=== PATIENT | female | born 1955 | race Caucasian/White ===

== ENCOUNTER 2017-03-29 13:38 | Day surgery (SDC) | payer OTHER ==
[2017-03-28 15:16] VITALS: BMI 31.9
[2017-03-29] MEDS ORDERED: ceFAZolin SODIUM 1 GM VIAL ONE (14:29)
[2017-03-29] MEDS ORDERED: PROPOFOL 20 ML ONE (14:33)
[2017-03-29] MEDS ORDERED: DEXAMETHASONE SOD PHOSPHATE 4 MG/1 ML VIAL ONE (14:33)
[2017-03-29] MEDS ORDERED: ROCURONIUM BROMIDE 50 MG/5 ML VIAL ONE ×2 (14:33→16:33)
[2017-03-29] MEDS ORDERED: LIDOCAINE HCL 2% 100 MG/5 ML DISP.SYRIN ONE (14:33)
[2017-03-29] MEDS ORDERED: fentaNYL CITRATE 250 MCG/5 ML VIAL ONE (14:33)
[2017-03-29] MEDS ORDERED: MIDAZOLAM HCL 2 MG/2 ML SINGLE DOSE VIAL ONE (14:34)
[2017-03-29] MEDS ORDERED: INDOCYANINE GREEN 25 MG/10 ML VIAL IVPUSH ONE (14:36)
[2017-03-29] MEDS ORDERED: LIDOCAINE 1%/EPI 1:100000 (20 ML MULTI DOSE VIAL) ONE (14:36)
[2017-03-29] MEDS ORDERED: BUPIVACAINE HCL/PF 0.5% (5MG/ML) 10 ML VIAL ONE (14:37)
--- NOTE | 2017-03-29 15:07 | HP ---
History & Physical Update - History History: No Change - Physical Physical: No Change - Assessment Assessment: No Change - Plan Plan: No Change
[2017-03-29] MEDS ORDERED: ceFAZolin SODIUM 1 GM VIAL IVPB ONE (15:35)
[2017-03-29] MEDS ORDERED: BUPIVACAINE HCL/PF 0.5% (5MG/ML) 10 ML VIAL IJ ONE (16:01)
[2017-03-29] MEDS ORDERED: GLYCOPYRROLATE 0.2 MG/1 ML VIAL ONE (17:01)
[2017-03-29] MEDS ORDERED: NEOSTIGMINE METHYLSULFATE 0.5 MG/ML - 10 ML MDV ONE (17:01)
--- NOTE | 2017-03-29 17:29 | OP ---
Operative Note - Note: Operative Date: 03/29/17 Pre-Operative Diagnosis: endometrial cancer Operation: Robotic total hysterectomy, bilateral salpingoophorectomy, bilateral pelvic sentinel lymphadenectomy Findings: cervix no lesions, vagina no lesions. Intrabdominal findings- normal diaphragm and liver edge, 8 week uterus with myomas, bilateral tubes and ovaries normal. No lymphadenopathy or ascites. No intraabdominal e/o disease Post-Operative Diagnosis: Same as Pre-op Surgeon: Marli Eason Bellman Driver: Verenice Mensah Anesthesia: General, Local Specimens Removed: uterus, cervix, bilateral tubes and ovaries, bilateral external iliac sentinel lymph nodes, washings Estimated Blood Loss (mls): 25 Operative Report Dictated: Yes
[2017-03-29] MEDS ORDERED: PROCHLORPERAZINE INJECTION 10 MG/2 ML VIAL IVPB PRN (17:35)
[2017-03-29] MEDS ORDERED: ONDANSETRON 4 MG/2 ML VIAL IVPB PRN (17:35)
[2017-03-29] MEDS ORDERED: diphenhydrAMINE HCL 25 MG CAPSULE (FP) PO PRN (17:35)
[2017-03-29] MEDS ORDERED: METOCLOPRAMIDE HCL INJECTION 10 MG/2 ML VIAL IVPUSH PRN (17:35)
[2017-03-29] MEDS ORDERED: HYDROmorphone HCL CARPU-JECT 4 MG/1 ML DISP.SYRIN IVPUSH PRN (17:35)
[2017-03-29] MEDS ORDERED: oxyCODONE HCL 5 MG TABLET PO PRN (17:39)
[2017-03-29] MEDS ORDERED: LACTATED RINGERS SOLUTION 1,000 ML/1,000 ML INFUS.BAG IV SCH (18:15)
[2017-03-29] MEDS: KETOROLAC TROMETHAMINE 15 MG/ML VIAL IVPUSH SCH (23:15)
[2017-03-29] MEDS: ACETAMINOPHEN 325 MG TABLET (FP) PO SCH ×2 (23:16→23:37)
[2017-03-29] MEDS ORDERED: HYDROmorphone HCL CARPU-JECT 2 MG/1 ML DISP.SYRIN IVPUSH PRN (23:27)
[2017-03-30] MEDS: KETOROLAC TROMETHAMINE 15 MG/ML VIAL IVPUSH SCH ×2 (03:30→09:17)
[2017-03-30] MEDS: ACETAMINOPHEN 325 MG TABLET (FP) PO SCH ×2 (05:56→11:57)
--- NOTE | 2017-03-30 07:32 | OP ---
DATE OF OPERATION: 03/29/2017 PREOPERATIVE DIAGNOSIS: Endometrial cancer. POSTOPERATIVE DIAGNOSIS: Endometrial cancer. PROCEDURES: Robotic-assisted total hysterectomy, bilateral salpingo- oophorectomy, and bilateral sentinel lymphadenectomy. SURGEON: Marli Eason MD DIRECTOR OF PSYCHOLOGY: Verenice Mensah MD ANESTHESIA: General endotracheal and local. ESTIMATED BLOOD LOSS: 25 mL. COMPLICATIONS: None. INDICATIONS: This is a 61-year-old 5, para 1 with history of postmenopausal vaginal bleeding, which began in Jun, 2016. She had a pelvic ultrasound on January 19, 2017, that showed a uterus of 4.4 x 3.8 x 3.5 cm, endometrial stripe was 10 mm, bilateral ovaries appeared normal, and there were 3 small myomas, the largest 1.3 cm, no free fluid. 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 Patient was counseled regarding surgical management. Risks, benefits, indications, and alternatives were discussed with the patient. All questions were answered. Informed consent was signed. FINDINGS: On cervix, no lesions. Vagina, no lesions. Vulva, no lesions. Intraabdominal findings: Liver edge normal. Diaphragm normal. The uterus was approximately 8 weeks in size with severe small fibroids. Bilateral tubes and ovaries were normal. The bilateral sentinel lymph nodes were on the external iliac vein. There was no lymphadenopathy. There was no intraabdominal evidence of disease and no ascites. DESCRIPTION OF PROCEDURE: The patient was taken to the operating room, placed in the dorsal supine position. General endotracheal anesthesia was obtained without difficulty. She was then placed in the dorsal lithotomy position in Rod stirrups and prepped and draped in a normal sterile fashion. Gonzalez catheter was placed in the bladder. A speculum was placed in the vagina. Then, 4 mL of ICG dye was injected into the cervix at 3 and 9 o'clock superficially and deep. The ICG dye was diluted to 1.25 mg/mL. A figure-of-8 stitch of 0 Vicryl was placed in the cervix, and the cervix was gently dilated. A Motion Engine uterine manipulator was placed, and the tenaculum and speculum were then removed. Attention was turned to the patients abdomen. Then, 5 mL of 0.25% Marcaine was injected into the umbilicus, and an 8-mm incision was made with a scalpel. While tenting the anterior abdominal wall, the Veress needle was inserted intraabdominally, and the abdomen was insufflated with CO2 gas. Additional 8-mm trocar was placed. In the left main quadrant, and an 8-mm trocar was placed in the right main quadrant , and a 5-mm aerosol port was placed in the right lower quadrant. All trocars were placed under direct visualization after injecting 0.25% Marcaine. A thorough examination of the abdomen and pelvis revealed the above noted findings. Peritoneal washings were taken using normal saline. The left round ligament was clamped, cauterized, and transected. The retroperitoneum was opened, and the sentinel node on the left was identified on the external iliac vein. This was carefully removed with excellent hemostasis. The right round ligament was clamped, cauterized, and transected. The right retroperitoneum was opened, and the sentinel lymph node on the right external iliac vein was identified. This was removed with excellent hemostasis and handed off the field. Frozen section of the bilateral lymph nodes returned negative. The right ureter was noted to be well away from the field of dissection. The right infundibulopelvic ligament was clamped, cauterized, and transected. This was carried through the broad ligament and the vesicouterine peritoneum anteriorly. The left infundibulopelvic ligament was noted to be well away from the ureter, and left infundibulopelvic ligament was clamped, cauterized, and transected. This was carried through the broad ligament and the vesicouterine peritoneum anteriorly. The bladder flap was created anteriorly dissecting the bladder off the anterior cervix and upper vagina. Uterine arteries bilaterally were skeletonized. They were clamped, cauterized, and transected. The cardinal ligaments were clamped, cauterized, and transected. The uterosacral ligaments were clamped, cauterized, and transected. The vaginotomy incision was made circumferentially around the cervix. The uterus, cervix, ovaries, and tubes were passed through the vagina. The vaginal cuff was closed in a running continuous fashion using 2-0 V-Loc suture. The pelvis was irrigated thoroughly with saline. Excellent hemostasis was seen. All instruments were removed from the patients abdomen. The da Oksana robot was then undocked, and skin was closed with 4-0 Monocryl, and Dermabond was applied. The vagina was irrigated with a solution of sterile water and Betadine. The patient was extubated and transferred in stable condition to PACU. Esvin Zuniga/[id number] MTDD
[2017-03-30 09:06] LABS: HEMATOCRIT 36.8 % (32.4-45.2); HEMOGLOBIN 12.2 GM/dL (10.7-15.3); MCH 28.8 pg (25.7-33.7); MCHC 33.1 g/dl (32.0-36.0); MEAN CELL VOLUME 86.9 fl (80-96); PLATELET COUNT 253 K/MM3 (134-434); RBC 4.24 M/mm3 (3.60-5.2); RDW 13.8 % (11.6-15.6); WHITE BLOOD COUNT 14.9 K/mm3 (4.0-10.0)
--- NOTE | 2017-03-30 09:10 | PN ---
Progress Note, Physician Chief Complaint: reports pain is well controlled, no chills, ambulated, tolerated regular diet, Gonzalez not d/branden yet - Current Medication List Current Medications: Active Medications Acetaminophen (Tylenol -) 650 mg PO Q6H [facility] Last Admin: 03/30/17 05:56 Dose: 650 mg Amlodipine Besylate (Norvasc -) 5 mg PO DAILY [facility] Diphenhydramine HCl (Benadryl Injection -) 25 mg IVPB Q6H PRN PRN Reason: FOR ITCHING Diphenhydramine HCl (Benadryl -) 25 mg PO Q6H PRN PRN Reason: FOR ITCHING Enoxaparin Sodium (Lovenox -) 40 mg SQ DAILY [facility] Hydromorphone HCl (Dilaudid Injection -) 0.5 mg IVPUSH Q3H PRN PRN Reason: PAIN LEVEL 6-10 Lactated Ringer's (Lactated Ringers Solution) 1,000 ml in 1,000 mls @ 100 mls/ hr IV ASDIR [facility] Last Admin: 03/29/17 18:00 Dose: 0 mls Ketorolac Tromethamine (Toradol Injection -) 15 mg IVPUSH Q6H-IV [facility] Stop: 04/03/17 17:59 Last Admin: 03/30/17 03:30 Dose: 15 mg Metoclopramide HCl (Reglan Injection -) 10 mg IVPUSH Q6H PRN PRN Reason: NAUSEA AND/OR VOMITING Ondansetron HCl (Zofran Injection) 8 mg IVPB Q8H PRN PRN Reason: NAUSEA Oxycodone HCl (Roxicodone -) 5 mg PO Q4H PRN PRN Reason: PAIN LEVEL 1-5 Prochlorperazine Edisylate (Compazine Injection -) 25 mg IVPB Q6H PRN PRN Reason: NAUSEA AND/OR VOMITING - Objective Vital Signs: Vital Signs Temperature 98.2 F 03/30/17 04:00 Pulse Rate 74 03/30/17 04:00 Respiratory Rate 20 03/30/17 04:00 Blood Pressure 131/68 03/30/17 04:00 O2 Sat by Pulse Oximetry (%) 98 03/29/17 20:00 Constitutional: Yes: Well Nourished HENT: Yes: WNL Neck: Yes: WNL, Supple Cardiovascular: Yes: WNL, Regular Rate and Rhythm Respiratory: Yes: WNL, CTA Bilaterally Gastrointestinal: Yes: Normal Bowel Sounds, Soft Genitourinary: Yes: WNL Edema: No Integumentary: Yes: WNL Wound/Incision: Yes: Clean/Dry, Well Approximated Neurological: Yes: WNL, Alert, Oriented Psychiatric: Yes: WNL, Alert, Oriented Assessment/Plan 61yo with Endometrial CA, s/p Robotic Hysterectomy/BSO/Lymph node dissection VSS, Afebrile doing well d/c Gonzalez, ambulate D/C home NPV for 6wks RTO 2 and 6 wks
[2017-03-30 09:36] LABS: BLOOD UREA NITROGEN 9 mg/dL (7-18); CALCIUM 7.9 mg/dL (8.5-10.1); CHLORIDE 105 mmol/L (98-107); POTASSIUM 3.7 mmol/L (3.5-5.1); SODIUM 139 mmol/L (136-145)
[2017-03-30 09:38] LABS: ANION GAP 8 (8-16); CO2 26 mmol/L (21-32); CREATININE 0.6 mg/dL (0.55-1.02)
[2017-03-30 09:41] LABS: GLUCOSE,RANDOM 99 mg/dL (74-106)
[2017-03-30] MEDS ORDERED: ENOXAPARIN NA (PORCINE) 40 MG/0.4 ML DISP.SYRIN SQ SCH (10:00)
[2017-03-30] MEDS ORDERED: amLODIPine BESYLATE 5 MG TABLET (FP) PO SCH (10:00)
[2017-03-30 11:21] VITALS: BP 129/63; PULSE 69; TEMP 98
--- NOTE | 2017-04-01 09:16 | PATH ---
Cytology Non-Gynecological Report Patient Name: GABRIEL SHEIKH [facility]. Rec. #: [id number] /Age/Gender: 1955 (Age: 61) / F Account: [id number] Location: [facility] SURGICAL Taken: 03/29/2017 Received: 03/30/2017 Reported: 04/01/2017 Physicians: Marli Eason MD Specimen(s) Received PELVIC WASHINGS Clinical History Endometrial cancer Final Diagnosis PELVIC WASHING FOR CYTOLOGY: SATISFACTORY FOR EVALUATION. NO MALIGNANT CELLS IDENTIFIED. MESOTHELIAL CELLS, RARE NEUTROPHILS, RARE LYMPHOCYTES, AND FEW RED BLOOD CELLS PRESENT. Comment: See concurrent material ([id number]). Electronically Signed Yelena Encinas M.D. Gross Description Approximately 50 cc of clear fluid received fresh. Four cytofunnels and one cellblock prepared.
--- NOTE | 2017-04-01 14:31 | PATH ---
Surgical Pathology Report Patient Name: GABRIEL SHEIKH [facility]. Rec. #: [id number] /Age/Gender: 1955 (Age: 61) / F Account: [id number] Location: [facility] SUR[facility]ICAL Taken: 03/29/2017 Received: 03/30/2017 Reported: 04/01/2017 Physicians: Marli Eason MD Specimen(s) Received A: LEFT EXTERNAL ILIAC SENTINEL LYMPH NODE B: RIGHT EXTERNAL ILIAC SENTINEL LYMPH NODE C: UTERUS, CERVIX, WITH TUBES AND OVARIES Clinical History Endometrial cancer Intraoperative Consult Diagnosis A. Left external iliac sentinel lymph node: One negative lymph node. B. Right external iliac sentinel lymph node: One negative lymph node. Clyde Gilliland M.D., 03/29/17 Final Diagnosis A. EXTERNAL ILIAC SENTINEL LYMPH NODE, LEFT, EXCISION (FS): ONE BENIGN LYMPH NODE (0/1). B. EXTERNAL ILIAC SENTINEL LYMPH NODE, RIGHT, EXCISION (FS): ONE BENIGN LYMPH NODE (0/1). C. UTERUS, CERVIX, BILATERAL OVARIES AND FALLOPIAN TUBES, ROBOTIC ASSISTED TOTAL HYSTERECTOMY WITH BILATERAL SALPINGO-OOPHORECTOMY: ENDOMETRIOID ADENOCARCINOMA, FIGO GRADE 1 OF 3, MEASURING 1.5 CM IN GREATEST DIMENSION. CARCINOMA INVADES 5 MM INTO A 14 MM THICK MYOMETRIAL WALL. CERVICAL STROMAL INVASION IS NOT IDENTIFIED. NO PERINEURAL OR LYMPHOVASCULAR INVASION IDENTIFIED. NO PARAMETRIAL INVOLVEMENT IDENTIFIED UTERUS SHOWS ADDITIONAL AREAS OF ADENOMYOSIS AND LEIOMYOMA. BILATERAL FALLOPIAN TUBES AND OVARIES WITHOUT SIGNIFICANT PATHOLOGIC FINDINGS. AJCC PATHOLOGIC STAGE (pTNM): pT1a pN0 sn Comment: Concurrent pelvic washing is negative (C18). Comments Endometrial Carcinoma :Surgical Pathology Cancer Case Summary Based on AJCC 8th edition Procedure _X_ Total hysterectomy and bilateral salpingo-oophorectomy _X_ Peritoneal washing (C1863: Negative) Tumor Size Greatest dimension: 1.5 cm Histologic Type _X_ Endometrioid carcinoma, NOS Histologic Grade _X_ FIGO grade 1 Myometrial Invasion _X_ Present Depth of invasion (millimeters):5 mm Myometrial thickness (millimeters): 14 mm Percentage of myometrial invasion: ~36% Uterine Serosa Involvement _X_ Not identified Cervical Stromal Involvement _X_ Not identified Other Tissue/Organ Involvement _X__ Not identified Lymphovascular Invasion _X_ Not identified Regional Lymph Nodes Lymph Node Examination Pelvic Node Examination Number of Pelvic Nodes with Macrometastasis (greater than 2 mm): 0 Number of Pelvic Nodes with Micrometastasis (greater than 0.2 mm and up to 2 mm): 0 Number of Pelvic Nodes with Isolated Tumor Cells (0.2 mm or less)#: 0 Total Number of Pelvic Nodes Examined (sentinel and non-sentinel): 2 Laterality of Pelvic Node(s) Examined: Left and Right external iliac Pathologic Stage Classification (pTNM, AJCC 8th Edition) Primary Tumor (pT) _X_ pT1a: Tumor limited to endometrium or invading less than half of the myometrium Regional Lymph Nodes (pN) Modifier _X_ (sn) [place] lymph nodes# Category (pN) _X_ pN0: No regional lymph node metastasis Electronically Signed Yelena Encinas M.D. Gross Description A. Received fresh labeled "left external iliac sentinel lymph node," is a 1.5 x 1.0 x 0.7 cm fatty lymph node. The specimen is entirely submitted for frozen section. The frozen section residue is entirely submitted in one cassette. B. Received fresh labeled "right external iliac sentinel lymph node," is a 1.5 x 0.5 x 0.3 cm lymph node. The specimen is entirely submitted for frozen section. The frozen section residue is entirely submitted in one cassette. C. Received in formalin labeled "uterus, cervix, bilateral tubes and ovaries," is a 63 g hysterectomy specimen including a uterus, attached cervix, and bilateral attached adnexa. The specimen measures 7.5 cm from superior to inferior, 4.2 cm from left to right and 3 cm from anterior to posterior. The serosa is moran adams and smooth. The attached cervix measures 2.5 cm in length and averages 2.4 cm in diameter. The ectocervix is moran, smooth and glistening. The endocervix is unremarkable. The endometrial cavity measures 3 cm in length and 2 cm from cornu to cornu. The endometrium displays a 1.5 x 1.2 cm moran, papillary lesion on the posterior aspect. The lesion appears to focally invade into the myometrium. The remaining endometrium is moran-red and averages 0.1 cm in thickness. The myometrium displays multiple small intramural nodules measuring up to 0.8 cm in greatest dimension. The cut surface of the nodules is moran, firm to rubbery and displays whorled architecture. No areas of hemorrhage or necrosis are identified. The remaining myometrium is moran-pink and averages 1.4 cm in thickness. The left fimbriated fallopian tube is moran-pink and measures 5 cm in length. Sectioning reveals an unremarkable lumen. The left ovary measures 1.9 x 1.3 x 1.2 cm. The outer surface is moran, convoluted and smooth. Sectioning reveals unremarkable ovarian parenchyma. The right fimbriated fallopian tube is moran-pink and measures 4 cm in length. Sectioning reveals an unremarkable lumen. The right ovary measures 2.1 x 1.8 x 1.0 cm. The outer surface is moran, convoluted and smooth. Sectioning reveals unremarkable ovarian parenchyma. Rn Psychiatric sections are submitted in 21 cassettes as follows: 1-anterior cervix; 2-anterior lower uterine segment; 3-posterior cervix; 4-posterior lower uterine segment; 5-left parametrium; 6-right parametrium; 8-08-[id number] anterior endomyometrium sequentially submitted from superior to inferior; 79-99-[id number] posterior endomyometrium, with mass, sequentially submitted from superior to inferior; 14-left fallopian tube fimbria; 15-cross sections of left fallopian tube; 02-00-esnnjyxc submitted left ovary; 18-right fallopian tube fimbria; 19-cross sections of right fallopian tube; 34-58-bqvtcubm submitted right ovary. 03/30/201703/30/2017
--- NOTE | 2017-04-04 20:03 | DS ---
Physical Examination Vital Signs: Vital Signs Temperature 98 F 03/30/17 10:00 Pulse Rate 69 03/30/17 10:00 Respiratory Rate 18 03/30/17 10:00 Blood Pressure 129/63 03/30/17 10:00 O2 Sat by Pulse Oximetry (%) 99 03/30/17 10:00 Constitutional: Yes: Well Nourished Eyes: Yes: WNL HENT: Yes: WNL Neck: Yes: WNL Cardiovascular: Yes: Regular Rate and Rhythm Respiratory: Yes: WNL, Regular, CTA Bilaterally Gastrointestinal: Yes: Normal Bowel Sounds, Soft ...Rectal Exam: Yes: WNL, Deferred Renal/: Yes: WNL Musculoskeletal: Yes: WNL Extremities: Yes: WNL Integumentary: Yes: WNL Wound/Incision: Yes: Clean/Dry, Well Approximated Neurological: Yes: WNL, Alert, Oriented Psychiatric: Yes: WNL, Alert, Oriented Labs: CBC, BMP 03/30/17 08:00 03/30/17 08:00 Discharge Summary Reason For Visit: ENDOMETRIAL CA Condition: Stable - Instructions Diet, Activity, Other Instructions: Regular diet. Ok to shower. Ok to drive in one week. Pelvic rest x 2 months. Referrals: Marli Eason MD [Staff Physician] - Verenice Mensah MD [Staff Physician] - Disposition: HOME - Home Medications Comprehensive Discharge Medication List: Ambulatory Orders Acetaminophen [Tylenol] 650 mg PO PRN PRN 03/28/17 Amlodipine Besylate 5 mg PO DAILY 03/28/17 Rivaroxaban [Xarelto] 10 mg PO DAILY 30 Days #30 tab 03/29/17 Oxycodone HCl [Oxycodone Hydrochloride] 5 gm MC Q4HWA #20 powder MDD 8 03/30/17 Oxycodone HCl/Acetaminophen [Percocet 5-325 mg Tablet -] 1 - 2 tab PO Q6H PRN # 20 tab MDD 8 03/30/17
== END 2017-03-30 12:15 | disposition home or self-care (01) ==
LOC: JASU-SURG 13:38 → J3W 20:00 → JASU-SURG 03-30 12:15
PROVIDERS: ATTEND Obstetrics & Gynecology Gynecologic Oncology
PROC: 0UT7FZZ Resection of Bilateral Fallopian Tubes, Via Natural or Artificial Opening With Percutaneous Endoscopic Assistance (ICD-10-PCS; 2017-03-29)
PROC: 8E0W4CZ Robotic Assisted Procedure of Trunk Region, Percutaneous Endoscopic Approach (ICD-10-PCS; 2017-03-29)
PROC: 07BC4ZX Excision of Pelvis Lymphatic, Percutaneous Endoscopic Approach, Diagnostic (ICD-10-PCS; 2017-03-29)
PROC: 0UT9FZZ Resection of Uterus, Via Natural or Artificial Opening With Percutaneous Endoscopic Assistance (ICD-10-PCS; principal; 2017-03-29 15:00)
PROC: 0UT2FZZ Resection of Bilateral Ovaries, Via Natural or Artificial Opening With Percutaneous Endoscopic Assistance (ICD-10-PCS; 2017-03-29 15:00)
DX: C54.1 Malignant neoplasm of endometrium (principal); I10 Essential (primary) hypertension
CPT/HCPCS: 38570; 58552; S2900; 36415; 80048; 85027; 86850; 86900; 86901; 88108; 88305-TC; 88309-TC; 88331-TC; 94760